=== PATIENT | female | born 1990 | race Caucasian/White ===

== ENCOUNTER 2016-10-27 22:33 | Emergency (ER) | payer MEDICAID, OTHER ==
[~2016-10-27] VITALS: Ht 160 cm; Wt 86.4 kg
[2016-10-27 22:54] LABS: ADD UA MICROSCOPIC YES; APPEARANCE,URINE CLOUDY (CLEAR); GLUCOSE, URINE (UA) NEGATIVE (NEGATIVE); KETONES,URINE NEGATIVE (NEGATIVE); LEUKOCYTE ESTERASE ,URINE LARGE (NEGATIVE); OCCULT BLOOD,URINE NEGATIVE (NEGATIVE); PROTEIN,URINE NEGATIVE (NEGATIVE)
[2016-10-27 23:02] LABS: RBC,URINE 0-2 /HPF (0-2); SQUAMOUS EPITHELIAL CELL,UR Many /LPF (None Seen)
[2016-10-27 23:50] VITALS: BP 130/70
== END 2016-10-27 23:51 | disposition home or self-care (01) ==
LOC: EMS 22:35
DX: M79.641 Pain in right hand (principal); Z88.6 Allergy status to analgesic agent
CPT/HCPCS: 29280; 87086; 99284

== ENCOUNTER 2017-03-12 16:32 | Emergency (ER) | payer OTHER ==
[~2017-03-12] VITALS: Ht 160 cm; Wt 81.8 kg
[2017-03-12 17:49] VITALS: BP 121/65
== END 2017-03-12 18:25 | disposition home or self-care (01) ==
LOC: EMS 16:34
DX: M25.561 Pain in right knee (principal); Z88.6 Allergy status to analgesic agent
CPT/HCPCS: 29505; 99283